=== PATIENT | female | born 1980 | race Caucasian/White ===

== ENCOUNTER 2016-11-05 15:59 | Outpatient (CLI) | payer MEDICAID ==
[~2016-11-05] VITALS: Ht 157.5 cm; Wt 63.6 kg
[2016-11-05 16:25] VITALS: Ht 157.5 cm; Wt 63.6 kg
[2016-11-05] MEDS ORDERED: PRENAT PO (16:26)
--- NOTE | 2016-11-05 17:16 | RADRPT ---
PROCEDURE: US OB. CLINICAL INDICATION: Size and dates TECHNIQUE: Multiple sonographic images of the pelvis were obtained. Transabdominal imaging only w as performed. The images were reviewed on a PACS workstation. COMPARISON: No prior studies are available for comparison. FINDINGS: There is a single live intrauterine gestation. Cardiac activity is present with 148 beats per minut e. position is cephalic. Measurements were made in order to determine age. The results are as follows: BPD = 8.76 cm HC = 32.41 cm AC = 35.71 cm FL = 6.96 cm. Estimated gestational age of approximately 36 weeks 6 days. The estimated date of delivery is 11/27/2016. The EFW = 3339 g, 46.3 %ile. The placenta is fundal. There is no evidence for an abruption or placenta previa. There are no adnexal masses. IMPRESSION: 1. Single live intrauterine gestation of approximately 36 weeks 6 days, by ultrasound criteria. 2. The estimated date of delivery is 11/27/2016. 3. The estimated weight is 3339 g, 46.3 %ile. RPTAT: HH .Kandice Flor MD, Date Time Electronically viewed and signed by .Kandice Flor MD, on 11/05/2016 17:10 .G/
--- NOTE | 2016-11-05 17:16 | RADRPT ---
PROCEDURE: OB ultrasound for biophysical profile CLINICAL INDICATION: Poor tone. TECHNIQUE: Multiple sonographic images of the pelvis were obtained. Transabdominal views of the g ravid uterus are available for review. The images were reviewed on a PACS workstation. COMPARISON: None FINDINGS: breathing movement = 2/2 tone = 2/2 motion = 2/2 JIM = 2/2 JIM = 18.2 cm Single live intrauterine with cardiac activity of 141 bpm. position is cephal ic. The placenta is fundal. IMPRESSION: 1. Single live intrauterine gestation. 2. Biophysical profile = 8/8. 3. JIM = 18.2 cm. RPTAT: HH .Kandice Flor MD, MD Date Time Electronically viewed and signed by .Kandice Flor MD, on 11/05/2016 17:11 .G/
== END 2016-11-05 17:40 | disposition home or self-care (01) ==
LOC: OBT 15:59 → L-D 16:00 → OBT 17:40
PROVIDERS: ATTEND Obstetrics & Gynecology
DX: O26.843 Uterine size-date discrepancy, third trimester (principal); Z3A.37 37 weeks gestation of pregnancy
CPT/HCPCS: 36415; 76815; 76818; Z7500; G0463

== ENCOUNTER 2016-11-12 16:00 | Inpatient (IN) | payer MEDICAID ==
[~2016-11-12] VITALS: Ht 157.5 cm; Wt 62.4 kg
[~2016-11-12 16:00] MED LIST: PRENAT PO
[2016-11-12] MEDS ORDERED: LACTATED RINGER'S 1,000 ML IV SCH (16:06)
[2016-11-12 16:17] VITALS: BP 111/78; PULSE 130; RESP 18; Ht 157.5 cm; Wt 62.4 kg
[2016-11-12] MEDS ORDERED: CEFAZOLIN 2 GM/50 ML (PMX) 50 ML IV SCH (16:30)
[2016-11-12] MEDS ORDERED: OXYTOCIN 30 UNITS/LR 500 ML IV PRN (16:30)
[2016-11-12] MEDS ORDERED: CARBOPROST 250 MCG INJ IM PRN (16:30)
[2016-11-12] MEDS ORDERED: METHYLERGONOVINE 0.2 MG INJ IM PRN (16:30)
[2016-11-12] MEDS ORDERED: OXYTOCIN 30 UNITS/LR 500 ML IV SCH (16:30)
[2016-11-12] MEDS ORDERED: MISOPROSTOL 200 MCG TAB PR PRN (16:30)
[2016-11-12 17:07] LABS: BASOPHILS % 0.2 % (0.0-2.0); EOSINOPHILS % 0.2 % (0.0-7.0); HEMATOCRIT 41.1 % (37.0-47.0); HEMOGLOBIN 14.1 g/dl (12.0-16.0); LYMPHOCYTES # 1.5 10^3/ul (0.8-2.9); MEAN CORPUSCULAR HGB CONC 34.2 g/dl (32.0-37.0); MEAN CORPUSCULAR VOLUME 87.7 fl (82.0-101.0); MEAN PLATELET VOLUME 8.4 fl (7.4-10.4); MONOCYTE # 0.6 10^3/ul (0.3-0.9); MONOCYTES % 8.9 % (0.0-11.0); NEUTROPHIL # 4.9 10^3/ul (1.6-7.5); NEUTROPHILS % 69.7 % (39.0-77.0); PLATELET COUNT 258 10^3/UL (140-440); RED BLOOD COUNT 4.69 10^6/ul (4.20-5.40); RED CELL DISTRIBUTION WIDTH 14.2 % (11.5-14.5); UNCORRECTED WBC 7.1 10^3/ul (4.8-10.8); WHITE BLOOD COUNT 7.1 10^3/ul (4.8-10.8)
[2016-11-12 17:15] LABS: CONDITION 1
[2016-11-12 17:16] LABS: INR 0.98
[2016-11-12 17:17] LABS: PARTIAL THROMBOPLASTIN TIME 28.6 Sec (25.0-35.0)
[2016-11-12] MEDS ORDERED: CITRIC ACID/NA CITRATE 30 ML CUP ONE (19:47)
[2016-11-12] MEDS ORDERED: CITRIC ACID/NA CITRATE 30 ML CUP PO ONE (20:00)
[2016-11-12] MEDS ORDERED: morphine SULFATE/PF (10 MG/10 ML) INJ ONE (20:28)
[2016-11-12] MEDS ORDERED: KETOROLAC 30 MG INJ ONE (20:36)
[2016-11-12] MEDS ORDERED: METOCLOPRAMIDE 10 MG INJ ONE (20:36)
[2016-11-12] MEDS ORDERED: ONDANSETRON 4 MG INJ ONE (20:36)
[2016-11-12] MEDS ORDERED: PHENYLephrine (100 MCG/ML) 5ML SYG ONE (20:48)
[2016-11-12] MEDS ORDERED: MEPERIDINE 25 MG INJ IV PRN (21:00)
[2016-11-12] MEDS ORDERED: METOCLOPRAMIDE 10 MG INJ IV PRN (21:00)
[2016-11-12] MEDS ORDERED: DIPHENHYDRAMINE 50 MG INJ IV PRN ×2 (21:00→23:30)
[2016-11-12] MEDS ORDERED: HYDROmorphONE (0.2 MG/ML) 10ML SYG IV PRN ×3 (21:00)
[2016-11-12] MEDS ORDERED: ONDANSETRON 4 MG INJ IV PRN ×2 (21:00→23:30)
--- NOTE | 2016-11-12 21:28 | HP ---
Date/Time of Note Date/Time of Note DATE: 11/12/16 TIME: 21:26 OB - History Hx of Present Free Text/Dictation G3P@38+5 wks GA with Hx of 2 previous c/section in labor : 3 Para: 2 Care: Good Care Ultrasounds: Normal mid trimester US Obstetrical Complications: None Medical Complications: None Past Family/Social History * Past Medical, Surgical, Family and Obstetric Histories reviewed from chart. OB Admission Exam Vital Signs Vital Signs Vital Signs Date Time Temp Pulse Resp B/P Pulse Ox O2 Delivery O2 Flow Rate FiO2 11/12/16 16:17 99.5 130 18 111/78 Room Air Physical Exam HEENT: WNL Extremities: Normal Reflexes: Normal Cervical Dilatation: 2cm Effacement: 75% Station: -1 Membranes: Intact Heart Rate: 140's Accelerations: Accelerations Present Decelerations: No Decelerations Varibility: Moderate Contractions on Admission: 6-10 Minutes Apart Last 72 hours Lab Results CBC & BMP 11/12/16 16:29 OB Assessment/Plan Reason for admission: section Plan: Section LASHAUN DELGADO M.D. Nov 12, 2016 21:28
--- NOTE | 2016-11-12 21:35 | OPR ---
Operative Report Planned Procedure Free Text/Dictation @ 38+6 wks GA with Hx of previous c/section in labor for repeat c/section + Bilateral tubal ligation Procedure date Nov 12, 2016 Procedure(s) Repeat c/section +Bilateral tubal ligation Performed by: LASHAUN DELGADO M.D. Assisting provider: GARLAND NYE Anesthesiologist: MELISSA BENAVIDES MD Pre-procedure diagnosis @ 38+6 wks GA with Hx of previous c/section in labor for repeat c/section + Bilateral tubal ligation Anesthesia Type: spinal Procedure Description Under satisfactory [] anesthesia, the patient was prepped and draped and placed in a supine position, tilted to the left. Pfannenstiel incision was made, carried through the subcutaneous tissue. Bleeders brought under control with electrocautery. Fascia incised to the length of the incision. Rectus muscles from the fascia, divided midline. Peritoneum exposed, entered through a transverse incision. Exploration of abdomen revealed gravid uterus. Bladder flap was developed. Transverse incision was made in the lower segment of the uterus. Amniotic sac ruptured. [] amniotic fluid noted. [] Nasal oropharyngeal suction was performed. The baby was handed to the team for immediate attention. The placenta was delivered manually intact. Uterine cavity was cleaned with wet sponge and drainage established. Uterus closed in 2 layers using [] in continuous fashion.The right tube was grasped using a bobcock tied 4 times with monocryl sutures and plain shtures and cut and sent to pathology.same procedures was done on the left tube Peritoneal cavity irrigated with warm saline. Sponge, needle and instrument count reported to be correct. Abdominal peritoneum closed with [] continuously. Rectus muscle approximated with []. Fascia closed with [], and skin closed with dermoband. Estimated blood loss [600]mL. Urine bag contained []mL of urine Post-Procedure Post-procedure diagnosis @ 38+6 wks GA with Hx of previous c/section in labor for repeat c/section + Bilateral tubal ligation Findings: Live Baby [], Apgars [] and [], weight [], position [], [] presentation []cord. Specimen removed: Yes Complications: None Pt Condition post procedure: stable Disposition: PACU Physician Certification I, the undersigned physician, hereby certify that I have discussed the procedure described in this consent form with this patient (or the patient's legal digital media representative), including: * The risk and benefits of the procedure; * Any adverse reactions that may reasonably be expected to occur; * Any alternative efficacious methods of treatment which may be medically viable ; * The potential problems that may occur during recuperation; * Potential for blood transfusion and associated risks/benefits; and * Any research or economic interest I may have regarding this treatment. I further certify that the patient/legally responsible person was encouraged to ask question and that all questions were answered. LASHAUN DELGADO M.D. Nov 12, 2016 21:35
[2016-11-12] MEDS ORDERED: EPHEDrine SULFATE 50 MG/5 ML SYG ONE (21:42)
[2016-11-12] MEDS ORDERED: OXYTOCIN 30 UNITS/LR 500 ML IV ONE (23:25)
[2016-11-12] MEDS ORDERED: HYDROmorphONE 1 MG/ML SYG IV PRN ×3 (23:30)
[2016-11-12] MEDS ORDERED: NALOXONE (0.4 MG/ML) INJ IV PRN (23:30)
[2016-11-12] MEDS ORDERED: KETOROLAC 30 MG INJ IV PRN (23:30)
[2016-11-12 23:59] VITALS: BP 141/64; PULSE 93; RESP 20
[2016-11-13] MEDS ORDERED: OXYTOCIN 30 UNITS/LR 500 ML IV PRN (00:30)
[2016-11-13] MEDS ORDERED: LANOLIN 7 GM TUBE TOP PRN (00:30)
[2016-11-13] MEDS ORDERED: MISOPROSTOL 200 MCG TAB PR PRN (00:30)
[2016-11-13] MEDS ORDERED: METHYLERGONOVINE 0.2 MG INJ IM PRN (00:30)
[2016-11-13] MEDS ORDERED: CARBOPROST 250 MCG INJ IM PRN (00:30)
[2016-11-13] MEDS: LACTATED RINGER'S 1,000 ML IV SCH ×2 (03:17→12:15)
[2016-11-13 03:20] VITALS: BP 119/60; PULSE 92; RESP 18
[2016-11-13] MEDS: IBUPROFEN 600 MG TAB PO SCH ×3 (05:40→19:10)
[2016-11-13 07:14] LABS: BASOPHILS % 0.3 % (0.0-2.0); EOSINOPHILS % 0.1 % (0.0-7.0); HEMATOCRIT 33.2 % (37.0-47.0); HEMOGLOBIN 11.4 g/dl (12.0-16.0); LYMPHOCYTES # 1.4 10^3/ul (0.8-2.9); LYMPHOCYTES % 12.1 % (15.0-51.0); MEAN CORPUSCULAR HEMOGLOBIN 30.2 pg (29.0-33.0); MEAN CORPUSCULAR HGB CONC 34.4 g/dl (32.0-37.0); MEAN CORPUSCULAR VOLUME 87.9 fl (82.0-101.0); MEAN PLATELET VOLUME 8.1 fl (7.4-10.4); MONOCYTE # 0.8 10^3/ul (0.3-0.9); MONOCYTES % 6.8 % (0.0-11.0); NEUTROPHILS % 80.7 % (39.0-77.0); PLATELET COUNT 198 10^3/UL (140-440); RED BLOOD COUNT 3.78 10^6/ul (4.20-5.40); RED CELL DISTRIBUTION WIDTH 13.9 % (11.5-14.5); UNCORRECTED WBC 11.1 10^3/ul (4.8-10.8); WHITE BLOOD COUNT 11.1 10^3/ul (4.8-10.8)
[2016-11-13 07:35] LABS: CONDITION 1
[2016-11-13 08:00] VITALS: BP 93/51; PULSE 94; RESP 17
[2016-11-13 12:00] VITALS: BP 100/53; PULSE 95; RESP 16
[2016-11-13 16:30] VITALS: BP 102/59; RESP 17
[2016-11-13] MEDS ORDERED: DIBUCAINE 1% 30 GM OINT TOP PRN (16:30)
--- NOTE | 2016-11-13 17:44 | QN ---
Documentation Comment POD#1 is stable afebrile No VB +Flatus Adequate urine VS stable GEn NAD Abd soft NT ND Incision intact Genitalia No blood at perinium --->Ambulation ---->Discharge plan tomorrow LASHAUN DELGADO M.D. Nov 13, 2016 17:44
[2016-11-13 20:27] VITALS: BP 101/59; PULSE 92; RESP 18
[2016-11-13] MEDS: SENNA/DOCUSATE NA (8.6MG/50MG) TAB PO SCH (22:17)
[2016-11-14] MEDS ORDERED: IBUPROFEN 600 MG TAB PO SCH
[2016-11-14] MEDS: OXYCODONE/ACETAMINOPHEN (5/325) TAB PO PRN ×3 (04:12→16:18)
[2016-11-14 04:15] VITALS: BP 113/68; PULSE 95; RESP 18
[2016-11-14] MEDS: IBUPROFEN 600 MG TAB PO SCH ×4 (06:00→18:17)
[2016-11-14 08:20] VITALS: BP 98/57; PULSE 82; RESP 16
[2016-11-14] MEDS: SENNA/DOCUSATE NA (8.6MG/50MG) TAB PO SCH ×2 (09:41→20:42)
[2016-11-14 16:20] VITALS: BP 105/63; PULSE 100; RESP 19
[2016-11-14 20:00] VITALS: BP 101/59; PULSE 79; RESP 18
--- NOTE | 2016-11-14 23:25 | QN ---
Documentation Comment POD#2 is stable afebrile No VB +Bm +voids VS stable GEn NAD Abd soft NT ND Incision intact Genitalia No blood at perinium --->Ambulation ---->Discharge plan tomorrow LASHAUN DELGADO M.D. Nov 14, 2016 23:25
[2016-11-15] MEDS: IBUPROFEN 600 MG TAB PO SCH ×3 (00:06→11:48)
[2016-11-15 04:08] VITALS: BP 109/67; PULSE 82; RESP 18
[2016-11-15] MEDS: OXYCODONE/ACETAMINOPHEN (5/325) TAB PO PRN (04:10)
[2016-11-15 04:30] VITALS: BP 108/59; PULSE 80; RESP 18
[2016-11-15 07:45] VITALS: BP 109/72; PULSE 80; RESP 18
[2016-11-15] MEDS ORDERED: DIPHTH/TET/ACEL PERTUSS (ADULT) 0.5 ML VIAL IM* ONE (09:00)
[2016-11-15] MEDS: SENNA/DOCUSATE NA (8.6MG/50MG) TAB PO SCH (09:17)
== END 2016-11-15 14:45 | disposition home or self-care (01) | DRG 766 ==
LOC: L-D 16:00 → PP1 23:59
PROVIDERS: ADMIT Obstetrics & Gynecology; ATTEND Obstetrics & Gynecology
PROC: 0UB70ZZ Excision of Bilateral Fallopian Tubes, Open Approach (ICD-10-PCS; 2016-11-12)
PROC: 10D00Z1 Extraction of Products of Conception, Low, Open Approach (ICD-10-PCS; principal; 2016-11-12 20:00)
PROC: 3E0234Z Introduction of Serum, Toxoid and Vaccine into Muscle, Percutaneous Approach (ICD-10-PCS; 2016-11-15)
DX: O34.219 Maternal care for unspecified type scar from previous cesarean delivery (principal); Z30.2 Encounter for sterilization; Z23 Encounter for immunization; Z3A.38 38 weeks gestation of pregnancy; Z37.0 Single live birth
CPT/HCPCS: 85025; 85610; 85730; 86592; 86850; 86900; 86901; 87340; 88302; 90715; J0690; J1170; J1200; J1885; J2274; J2370; J2405; J2590; J2765; J7120